=== PATIENT | male | born 1965 | race Caucasian/White ===

== ENCOUNTER 2019-09-21 05:13 | Emergency (ER) | payer MEDICAID ==
[~2019-09-21] VITALS: Ht 170.2 cm; Wt 105.0 kg
--- NOTE | 2019-09-21 05:21 | NUR ---
ANANYA Arias assisted with rooming and acquiring vitals on pt upon arrival to facility.
[2019-09-21] MEDS ORDERED: ASPIRIN 81 MG TABLET CHEW PO ONE (06:30)
[2019-09-21] MEDS ORDERED: MORPHINE SULFATE 4 MG/ML, 1ML IVPush PRN (06:30)
[2019-09-21] MEDS ORDERED: SODIUM CHLORIDE 0.9% 1,000ML IVBOLUS ONE (06:30)
[2019-09-21] MEDS ORDERED: SODIUM CHLORIDE FLUSH 10ML SYR IVF ONE (06:30)
[2019-09-21] MEDS ORDERED: ONDANSETRON 2MG/ML, 2ML IVPush ONE (06:30)
[2019-09-21] MEDS ORDERED: MORPHINE SULFATE 4 MG/ML, 1ML ONE (06:36)
[2019-09-21] MEDS ORDERED: ASPIRIN 81 MG TABLET CHEW ONE (06:36)
[2019-09-21] MEDS ORDERED: ONDANSETRON 2MG/ML, 2ML ONE (06:36)
[2019-09-21 07:32] VITALS: BP 172/94
--- NOTE | 2019-09-21 07:33 | NUR ---
RECEIVED REPORT FROM ABEBE PINEDA. PT STATES HE STARTED FEELING CP AND SOB WITH INSPIRATION YESTERDAY. LAST WEEK HE HAD ONE DAY OF NOT FEELING WELL. PT STATES WHILE LYING STILL IN BED HE DOES NOT HAVE CP.
[2019-09-21 07:42] LABS: BASOPHILS # (AUTO) 0.04 x10^3/uL (0-0.1); BASOPHILS % (AUTO) 1 % (0-1); EOSINOPHILS # (AUTO) 0.12 x10^3/uL (0-0.4); EOSINOPHILS % (AUTO) 2 % (1-7); LYMPHOCYTES # (AUTO) 1.87 x10^3/uL (1-3.4); LYMPHOCYTES % (AUTO) 29 % (22-44); MD NO; MEAN CORPUSCULAR HEMOGLOBIN 31.9 pg (27.5-34.5); MEAN CORPUSCULAR HGB CONC 33.6 g/dL (33.2-36.2); MEAN CORPUSCULAR VOLUME 94.9 fL (81-97); MEAN PLATELET VOLUME 7.7 fL (7.4-10.4); MONOCYTES # (AUTO) 0.47 x10^3/uL (0.2-0.8); MONOCYTES % (AUTO) 7 % (2-9); NEUTROPHILS # (AUTO) 3.97 x10^3/uL (1.8-6.8); NEUTROPHILS % (AUTO) 61 % (42-75); PLATELET COUNT 264 x10^3/uL (130-400); RED BLOOD COUNT 5.03 x10^6/uL (4.38-5.82); RED CELL DISTRIBUTION WIDTH 12.9 % (9.4-14.8)
[2019-09-21 08:19] LABS: ALBUMIN 3.5 g/dL (3.4-5.0); ANION GAP 5 mmol/L (5-15); CALCIUM 8.6 mg/dL (8.5-10.1); CHLORIDE 106 mmol/L (98-107); CREATININE 1.11 mg/dL (0.7-1.3)
[2019-09-21 08:22] LABS: TROPONIN I < 0.015 ng/mL (0.000-0.045)
== END 2019-09-21 09:36 | disposition home or self-care (01) ==
LOC: ED 05:34
DX: R07.89 Other chest pain (principal)
CPT/HCPCS: 36415; 71045; 80048; 82040; 84484; 85025; 93005; 96374; 96375; 99285; J2270; J2405; J7030